=== PATIENT | male | born 1970 | race Caucasian/White ===

== ENCOUNTER → 2021-03-18 | Day surgery (SDC) | payer OTHER ==
[~2021-03-18] MED LIST: CLARITIN-D 241 EACH PO; FAMOTIDINE20 MG PO; LEVOTHYROXINE75 MC1 PO; VITAMIN D31250 MCG PO; ZOCOR40 MG PO
== END | disposition home or self-care (01) ==
LOC: OR 07:02
DX: C20 Malignant neoplasm of rectum (principal); K21.9 Gastro-esophageal reflux disease without esophagitis; E78.5 Hyperlipidemia, unspecified; E03.9 Hypothyroidism, unspecified; Z86.16 Personal history of COVID-19; Z79.899 Other long term (current) drug therapy
CPT/HCPCS: 71045; 77001; C1769; C1788; J0690; J1100; J1642; J2001; J2250; J2405; J2704; J3010; J7030; J7040; J7120

== ENCOUNTER → 2021-06-20 | Outpatient (CLI) | payer BC | LOC: MRI 06-10 14:00 | DX: D64.81 Anemia due to antineoplastic chemotherapy (principal); C20 Malignant neoplasm of rectum | CPT/HCPCS: 72197; A9577 ==